=== PATIENT | female | born 1960 | race Caucasian/White ===

== ENCOUNTER 2021-05-02 10:33 | Outpatient (CLI) | payer SELFPAY ==
--- NOTE | 2021-05-02 10:54 | XR_ITS ---
WS: [id number] RIGHT SHOULDER: 2 VIEW(S) TECHNIQUE: Internal and external rotation. HISTORY: PAIN IN RIGHT SHOULDER COMPARISON: None available. No fracture or dislocation or soft tissue abnormality. Mild AC joint arthritis. Glenohumeral joint is normal. XR/XR shoulder RT min 2V* [id number] IMPRESSION: Mild AC joint arthritis.
--- NOTE | 2021-05-02 10:54 | XR_ITS ---
WS: [id number] RIGHT KNEE: 3 VIEW(S) TECHNIQUE: AP, oblique(s) and lateral. HISTORY: KNEE PAIN, RIGHT COMPARISON: None available. No fracture or dislocation. Moderate narrowing of the medial and patellofemoral joint spaces. There is near bone upon bone in the medial compartment with sclerosis. No joint effusion. No soft tissue abnormality. 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
== END 2021-05-02 10:34 | disposition home or self-care (01) ==
PROVIDERS: PCP Family Medicine; Visit Provider Family Medicine
DX: M19.011 Primary osteoarthritis, right shoulder (principal); M17.11 Unilateral primary osteoarthritis, right knee
CPT/HCPCS: 73030; 73562